=== PATIENT | female | born 2005 | race Caucasian/White ===

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

== ENCOUNTER 2023-12-13 21:12 | Outpatient (REF) | payer MEDICAID, SELFPAY ==
[2023-12-15 10:32] LABS: Measles IgG Antibody Positive (See Note)
[2023-12-17 15:25] LABS: Measles (Rubeola), IgM Negative (Negative)
== END 2023-12-13 21:13 | disposition home or self-care (01) ==
LOC: LBN 21:12
PROVIDERS: PCP Nurse Practitioner Pediatrics; Visit Provider Nurse Practitioner Family
DX: R21 Rash and other nonspecific skin eruption (principal); Z11.59 Encounter for screening for other viral diseases
CPT/HCPCS: 86765